=== PATIENT | male | born 1975 | race Caucasian/White ===

== ENCOUNTER 2017-01-15 00:56 | Emergency (ER) | payer OTHER ==
[~2017-01-15] VITALS: Ht 177.8 cm; Wt 110.0 kg
[2017-01-15 01:00] VITALS: Ht 177.8 cm; Wt 110.0 kg
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
[2017-01-15] MEDS ORDERED: ONDANSETRON (ODT) 4 MG TAB ODT STA (02:10)
[2017-01-15] MEDS ORDERED: IBUP-1542 PO (02:13)
[2017-01-15] MEDS ORDERED: HYDROCODONE/APAP (5/325) TAB PO ONE (02:30)
[2017-01-15 02:56] VITALS: BP 122/81; PULSE 102; RESP 16
[2017-01-16] MEDS ORDERED: HYDROCODONE/APAP (5/325) TAB ONE (01:46)
[2017-01-16] MEDS ORDERED: LACT10SO5 PO (11:27)
[2017-01-16] MEDS ORDERED: SENN-53 PO (11:27)
[2017-01-16] MEDS ORDERED: MULTI PO (11:28)
[2017-01-16] MEDS ORDERED: ASCO500S2 PO (11:28)
[2017-01-16] MEDS ORDERED: BACL20TA PO (11:29)
[2017-01-16] MEDS ORDERED: GABA400C14 PO (11:29)
[2017-01-16] MEDS ORDERED: DOCU-159 PO (11:29)
[2017-01-16] MEDS ORDERED: LANT3I SC (11:30)
[2017-01-16] MEDS ORDERED: HYDR-906 PO (11:32)
[2017-01-16] MEDS ORDERED: SILV20CR14 TOP (11:33)
[2017-01-16] MEDS ORDERED: ZINC220T PO (11:34)
[2017-01-16] MEDS ORDERED: SODI473S19 IRR (11:34)
[2017-01-16] MEDS ORDERED: UDMYL PO (11:35)
[2017-01-16] MEDS ORDERED: HYDR-902 PO (11:36)
[2017-01-16] MEDS ORDERED: POLY17PO6 PO (11:37)
[2017-01-16] MEDS ORDERED: GLUC1KIT IJ (11:37)
== END 2017-01-15 08:32 | disposition home or self-care (01) ==
LOC: E/R 00:56
DX: L89.95 Pressure ulcer of unspecified site, unstageable (principal); R40.2252 Coma scale, best verbal response, oriented, at arrival to emergency department; R40.2142 Coma scale, eyes open, spontaneous, at arrival to emergency department; R40.2362 Coma scale, best motor response, obeys commands, at arrival to emergency department
CPT/HCPCS: 99283

== ENCOUNTER 2017-01-16 08:09 | Inpatient (IN) | payer OTHER ==
[~2017-01-16] VITALS: Ht 165.1 cm; Wt 95.7 kg
[~2017-01-16 08:09] MED LIST: IBUP-1542 PO
[2017-01-16 09:16] LABS: BASOPHIL # 0.1 10^3/ul (0.0-0.1); BASOPHILS % 0.9 % (0.0-2.0); EOSINOPHILS # 0.2 10^3/ul (0.0-0.5); EOSINOPHILS % 2.7 % (0.0-7.0); HEMATOCRIT 32.7 % (42.0-52.0); HEMOGLOBIN 10.5 g/dl (14.0-18.0); LYMPHOCYTES # 0.7 10^3/ul (0.8-2.9); LYMPHOCYTES % 12.3 % (15.0-51.0); MEAN CORPUSCULAR HEMOGLOBIN 25.1 pg (29.0-33.0); MEAN CORPUSCULAR HGB CONC 32.1 g/dl (32.0-37.0); MEAN PLATELET VOLUME 11.5 fl (7.4-10.4); MONOCYTE # 0.3 10^3/ul (0.3-0.9); MONOCYTES % 4.5 % (0.0-11.0); NEUTROPHILS % 79.4 % (39.0-77.0); PLATELET COUNT 171 10^3/UL (140-415); RED BLOOD COUNT 4.19 10^6/ul (4.70-6.10); RED CELL DISTRIBUTION WIDTH 16.8 % (11.5-14.5); WHITE BLOOD COUNT 5.8 10^3/ul (4.8-10.8)
--- NOTE | 2017-01-16 09:26 | RADRPT ---
PROCEDURE: XR Chest. CLINICAL INDICATION: Possible sepsis TECHNIQUE: A single AP view of the chest was obtained. COMPARISON: None available FINDINGS: Lung volumes are low with compressive changes and crowding of the central pulmonary vascular marking s and left basilar interstitial opacities. There is a questionable small left pleural effusion. No pneumothorax is seen. The cardiomediastinal silhouette is upper limits of normal in size. The osseo us structures are unremarkable. IMPRESSION: 1. Small left pleural effusion with left basilar atelectasis versus pneumonia. 2. Low lung volumes with compressive changes. RPTAT: HH .Elida Harper MD, MD Date Time Electronically viewed and signed by .Elida Harper MD, MD on 01/16/2017 09:25 .G/
[2017-01-16 09:30] LABS: INR 1.04; PROTIME 13.6 Sec (12.2-14.2); PT RATIO 1.1
[2017-01-16 09:31] LABS: PARTIAL THROMBOPLASTIN TIME 27.5 Sec (25.0-35.0)
[2017-01-16 09:37] LABS: ALANINE AMINOTRANSFERASE 32 IU/L (13-69); ALBUMIN 3.8 g/dl (3.3-4.9); ALBUMIN/GLOBULIN RATIO 0.92; ALKALINE PHOSPHATASE 126 IU/L (42-121); ANION GAP 21 (8-16); ASPARTATE AMINO TRANSFERASE 18 IU/L (15-46); BLOOD UREA NITROGEN 5 mg/dl (7-20); CALCIUM 9.3 mg/dl (8.4-10.2); CARBON DIOXIDE 24 mmol/L (21-31); CHLORIDE 105 mmol/L (97-110); CREATININE 1.22 mg/dl (0.61-1.24); GLUCOSE 134 mg/dl (70-220); SODIUM 146 mmol/L (135-144); TOTAL PROTEIN 7.9 g/dl (6.1-8.1)
[2017-01-16 10:02] LABS: TROPONIN-I < 0.012 ng/ml (0.00-0.12)
[2017-01-16 11:08] LABS: ADD UMIC YES; UR ASCORBIC ACID NEGATIVE (NEGATIVE); UR BACTERIA MODERATE /HPF (NONE SEEN); UR BILIRUBIN (Dip) NEGATIVE (NEGATIVE); UR BLOOD (Dip) 1+ mg/dL (NEGATIVE); UR BUDDING YEAST MODERATE /HPF (NONE SEEN); UR CLARITY SLIGHTLY CLOUDY (CLEAR); UR COLOR YELLOW (YELLOW); UR GLUCOSE (Dip) NEGATIVE (NEGATIVE); UR KETONES (Dip) NEGATIVE (NEGATIVE); UR LEUKOCYTE ESTERASE (Dip) 2+ Leu/ul (NEGATIVE); UR NITRITE (Dip) NEGATIVE (NEGATIVE); UR RBC 7 /HPF (0-5); UR SPECIFIC GRAVITY (Dip) 1.009 (1.003-1.030); UR TOTAL PROTEIN (Dip) 1+ mg/dl (NEGATIVE); UR UROBILINOGEN (Dip) NEGATIVE (NEGATIVE)
[2017-01-16] MEDS ORDERED: LACT10SO5 PO (11:27)
[2017-01-16] MEDS ORDERED: SENN-53 PO (11:27)
[2017-01-16] MEDS ORDERED: ASCO500S2 PO (11:28)
[2017-01-16] MEDS ORDERED: MULTI PO (11:28)
[2017-01-16] MEDS ORDERED: GABA400C14 PO (11:29)
[2017-01-16] MEDS ORDERED: DOCU-159 PO (11:29)
[2017-01-16] MEDS ORDERED: BACL20TA PO (11:29)
[2017-01-16] MEDS ORDERED: VANCOMYCIN 1 GM (PMX) 250 ML IVPB SCH (11:30)
[2017-01-16] MEDS ORDERED: LANT3I SC (11:30)
[2017-01-16] MEDS ORDERED: CEFTRIAXONE 1 GM/50 ML (PMX) 50 ML IVPB ONE (11:30)
[2017-01-16] MEDS ORDERED: HYDR-906 PO (11:32)
[2017-01-16] MEDS ORDERED: SILV20CR14 TOP (11:33)
--- NOTE | 2017-01-16 11:33 | ERA ---
ER Documentation Chief Complaint Date/Time DATE: 01/16/17 TIME: 11:29 Chief Complaint Chest Pain HPI 41-year-old male referred to the emergency department from ambulance from his care facility for evaluation of chest pain. Patient is a poor historian providing limited insight. He states he had a nonspecific chest pain that started today. When the paramedics were called for his chest pain, he refused aspirin and other treatment but did want to get stent to the hospital. He has no further symptoms description of his chest pain in terms of radiation or inciting event. I have reviewed the director of real estate pre-hospital care. Pre-hospital vital signs were reviewed. Pre-hospital diagnostic tests were reviewed. Upon arrival, patient has no complaints of fevers, chills, vomiting or further discomfort. ROS All systems reviewed and are negative except as per history of present illness. Medications Home Meds Reported Medications Docusate Sodium* (Docusate Sodium*) 100 Mg Capsule, 100 MG PO BID, #60 CAP 01/16/17 Baclofen* (Baclofen*) 20 Mg Tablet, 20 MG PO Q6, TAB 01/16/17 Ascorbic Acid* (Ascorbic Acid*) 500 Mg/5 Ml Syrup, 500 MG PO BID, #300 ML 01/16/17 Multivitamins* (Theragran*) 1 Tab Tab, 1 TAB PO DAILY, TAB 01/16/17 Sennosides* (Senna Lax*) 8.6 Mg Tablet, 1 TAB PO DAILY, TAB 01/16/17 Lactulose* (Lactulose*) 10 Gm/15 Ml Solution, 10 GM PO DAILY Y for CONSTIPATION , ML 01/16/17 Discontinued Scripts Ibuprofen* (Motrin*) 600 Mg Tab, 600 MG PO Q6, #20 TAB Prov:JERRI MUNOZ MD 01/15/17 Allergies Allergies: Coded Allergies: No Known Allergy (Unverified , 01/16/17) PMhx/Soc Medical and Surgical Hx: pt denies Surgical Hx History of Surgery: Yes (COLOSTOMY ) Anesthesia Reaction: No Hx Neurological Disorder: No Hx Respiratory Disorders: No Hx Cardiac Disorders: No Hx Psychiatric Problems: No Hx Miscellaneous Medical Probl: Yes (DM) Hx Alcohol Use: Yes Hx Substance Use: No Hx Tobacco Use: No Smoking Status: Never smoker FmHx Noncontributory for chief complaint Physical Exam Vitals Vital Signs Date Time Temp Pulse Resp B/P Pulse Ox O2 Delivery O2 Flow Rate FiO2 01/16/17 09:46 118 18 175/118 100 Nasal Cannula 2.0 01/16/17 08:10 97.6 108 22 167/117 100 01/16/17 08:10 Nasal Cannula 2 Physical Exam General: frail, bed bound, ill appearing HEENT: Mucous membranes dry, sclera nonicteric Neck: No inflammatory changes noted. No JVD. Cardiovascular: Regular rate and rhythm, no murmurs rubs or gallops. Lungs: Transmission of upper airway sounds. Abdomen: Soft with G-tube appreciated. Nontender to palpation. Bowel sounds noted. : Diaper in place and incontinent. indwelling ramírez with cloudy urine noted Extremities: Atrophic but atraumatic with no edema, cyanosis or clubbing. Neurologic: Baseline neurologic dysfunction noted. Motor strength diminished in all 4 extremities consistent with neurologic dysfunction at baseline Skin: Skin breakdown noted per nursing note. Result Diagram: 01/16/17 0840 01/16/17 0840 Results 24 hrs Laboratory Tests Test 01/16/17 08:40 01/16/17 08:59 White Blood Count 5.810^3/ul Red Blood Count 4.1910^6/ul Hemoglobin 10.5g/dl Hematocrit 32.7% Mean Corpuscular Volume 78.0fl Mean Corpuscular Hemoglobin 25.1pg Mean Corpuscular Hemoglobin Concent 32.1g/dl Red Cell Distribution Width 16.8% Platelet Count 09533^3/UL Mean Platelet Volume 11.5fl Neutrophils % 79.4% Lymphocytes % 12.3% Monocytes % 4.5% Eosinophils % 2.7% Basophils % 0.9% Nucleated Red Blood Cells % 0.0/100WBC Neutrophils # (Manual) 4.610^3/ul Lymphocytes # 0.710^3/ul Monocytes # 0.310^3/ul Eosinophils # 0.210^3/ul Basophils # 0.110^3/ul Nucleated Red Blood Cells # 0.010^3/ul Prothrombin Time 13.6Sec Prothrombin Time Ratio 1.1 INR International Normalized Ratio 1.04 Activated Partial Thromboplast Time 27.5Sec Sodium Level 146mmol/L Potassium Level 4.0mmol/L Chloride Level 105mmol/L Carbon Dioxide Level 24mmol/L Anion Gap 21 Blood Urea Nitrogen 5mg/dl Creatinine 1.22mg/dl Glucose Level 134mg/dl Lactic Acid Level 1.6mmol/L Calcium Level 9.3mg/dl Total Bilirubin 0.0mg/dl Direct Bilirubin 0.00mg/dl Indirect Bilirubin 0.0mg/dl Aspartate Amino Transf (AST/SGOT) 18IU/L Alanine Aminotransferase (ALT/SGPT) 32IU/L Alkaline Phosphatase 126IU/L Troponin I < 0.012ng/ml Total Protein 7.9g/dl Albumin 3.8g/dl Globulin 4.10g/dl Albumin/Globulin Ratio 0.92 Urine Color YELLOW Urine Clarity SLIGHTLY CLOUDY Urine pH 6.0 Urine Specific [place] 1.009 Urine Ketones NEGATIVEmg/dL Urine Nitrite NEGATIVEmg/dL Urine Bilirubin NEGATIVEmg/dL Urine Urobilinogen NEGATIVEmg/dL Urine Leukocyte Esterase 2+Amparo/ul Urine Microscopic RBC 7/HPF Urine Microscopic WBC 31/HPF Urine Bacteria MODERATE/HPF Urine Yeast (Budding) MODERATE/HPF Urine Hemoglobin 1+mg/dL Urine Glucose NEGATIVEmg/dL Urine Total Protein 1+mg/dl Current Medications Medications (Trade) Dose Ordered Sig/Mita Route PRN Reason Start Time Stop Time Status Last Admin Dose Admin Ceftriaxone Sodium 50 ml @ 100 mls/hr ONCE ONCE IVPB 01/16/17 11:30 01/16/17 11:59 Vancomycin HCl (Vancocin) 250 ml @ 125 mls/hr ONCE IVPB 01/16/17 11:30 01/16/17 13:29 Procedures/MDM Patient was taken to a room, seen and evaluated. Comfort measures were initiated. Diagnostic tests were ordered and reviewed. 3 LEAD RHYTHM STRIP: Sinus tachycardia EK lead EKG reviewed by myself: Sinus tachycardia Normal [place] and intervals Nonspecific ST and T-wave changes without ST elevation Impression: Nondiagnostic EKG RADIOLOGY: reviewed with the radiologist CONSULTATION: hospitalist was notified for admission REEVALUATION: Patient remained hemo-dynamically stable MEDICAL DECISION MAKIN-year-old male with a history of paraplegia presents the emergency from a chest pain of uncertain etiology. From the standpoint of his chest pain, I have appreciated a nonspecific EKG and a negative troponin. Patient will be admitted for further observation. At this time, I have a low suspicion for clinically relevant pulmonary embolism and therefore have not ordered CT scans. Concurrently, patient has a catheter associated urinary tract infection but does not appear to be septic. Patient will be admitted for further evaluation. Departure Diagnosis: Primary Impression: Chest pain Additional Impression: Urinary catheter infection Condition: EMERSON Downey Jan 16, 2017 11:33
[2017-01-16] MEDS ORDERED: ZINC220T PO (11:34)
[2017-01-16] MEDS ORDERED: SODI473S19 IRR (11:34)
[2017-01-16] MEDS ORDERED: UDMYL PO (11:35)
[2017-01-16] MEDS ORDERED: HYDR-902 PO (11:36)
[2017-01-16] MEDS ORDERED: POLY17PO6 PO (11:37)
[2017-01-16] MEDS ORDERED: GLUC1KIT IJ (11:37)
[2017-01-16 13:42] VITALS: TEMP 97.4
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
[2017-01-16] MEDS ORDERED: IODIXANOL LOCM 100 ML BTL ONE (14:54)
[2017-01-16] MEDS ORDERED: SOD CHLORIDE 0.9% 100 ML ONE (14:54)
[2017-01-16] MEDS ORDERED: ONDANSETRON 4 MG INJ IV STA (15:33)
[2017-01-16] MEDS ORDERED: morphine 4 MG/ML VIAL IV STA (15:33)
[2017-01-16] MEDS: DOCUSATE SODIUM 100 MG CAP PO SCH (21:12)
[2017-01-16] MEDS: ASCORBIC ACID 500 MG TAB PO SCH (21:12)
[2017-01-16] MEDS: ENOXAPARIN 40 MG/0.4 ML SYG SC SCH (21:14)
[2017-01-16] MEDS ORDERED: AL HYDROX/MG HYDROX/SIMETH 30 ML CUP PO PRN (21:30)
[2017-01-16] MEDS ORDERED: HYDROCODONE/APAP (10/325) TAB PO PRN (21:30)
[2017-01-16] MEDS ORDERED: POLYETHYLENE GLYCOL 17 GM PACKET PO PRN (21:30)
[2017-01-16] MEDS ORDERED: LACTULOSE 30ML CUP PO PRN (21:30)
[2017-01-16] MEDS ORDERED: DEXTROSE 50% 50 ML SYRINGE IV PRN ×2 (22:00)
[2017-01-16] MEDS ORDERED: GLUCAGON 1 MG INJ IM PRN (22:00)
[2017-01-16] MEDS ORDERED: GLUCOSE GEL 15 GRAM TUBE BUCCAL PRN (22:00)
[2017-01-16] MEDS ORDERED: GLUCOSE GEL 15 GRAM TUBE PO PRN ×2 (22:00)
[2017-01-16] MEDS: hydrALAzine 20 MG INJ IV PRN (22:08)
[2017-01-16] MEDS ORDERED: LABETALOL HCL 20MG INJ IV ONE ×2 (23:00)
[2017-01-17] VITALS (14 sets, daily range): BP systolic 117–177; BP diastolic 86–99; PULSE 95–106; RESP 16–20; Ht 165.1 cm; Wt 95.7 kg
[2017-01-17] MEDS: LISINOPRIL 20 MG TAB PO SCH ×2 (01:12→09:14)
[2017-01-17] MEDS: BACLOFEN 10 MG TAB PO SCH ×4 (02:00→18:00)
[2017-01-17] MEDS: FLUCONAZOLE 200 MG/NS (PMX) 100 ML IVPB SCH ×2 (03:46→21:39)
[2017-01-17] MEDS ORDERED: GLUCOSE GEL 15 GRAM TUBE BUCCAL PRN (08:00)
[2017-01-17] MEDS ORDERED: DEXTROSE 50% 50 ML SYRINGE IV PRN ×2 (08:00)
[2017-01-17] MEDS: INSULIN ASPART [NOVOLOG] 3 ML PEN SC SCH ×4 (08:00→21:00)
[2017-01-17] MEDS ORDERED: GLUCOSE GEL 15 GRAM TUBE PO PRN ×2 (08:00)
[2017-01-17] MEDS ORDERED: GLUCAGON 1 MG INJ IM PRN (08:00)
[2017-01-17] MEDS: ASCORBIC ACID 500 MG TAB PO SCH ×2 (09:00→21:40)
[2017-01-17] MEDS: SILVER SULFADIAZINE 1% 400 GM CR TOP SCH ×3 (09:00→21:00)
[2017-01-17] MEDS: DOCUSATE SODIUM 100 MG CAP PO SCH ×2 (09:00→21:40)
[2017-01-17] MEDS: MULTIVITAMINS THERAPEUTIC TAB PO SCH (09:00)
[2017-01-17] MEDS: ZINC SULFATE 220 MG CAP PO SCH (09:00)
[2017-01-17] MEDS: SENNA TAB PO SCH (09:00)
[2017-01-17] MEDS ORDERED: INSULIN GLARGINE [LANtus] 3 ML PEN SC SCH (09:00)
[2017-01-17] MEDS: GABAPENTIN 400 MG CAP PO SCH ×3 (09:00→21:40)
[2017-01-17] MEDS: ENOXAPARIN 40 MG/0.4 ML SYG SC SCH (09:19)
--- NOTE | 2017-01-17 10:39 | RADRPT ---
Echocardiogram Report Patient Name: TRISHA PATE Gender: Male Date: 1975 Study Date: 17-Jan-2017 Chiropractic Assistant: Librado Berger [facility] Location: 5560 Ref. Physician: SRINATH HUSAIN Quality: Technically Difficult Study Procedures: Transthoracic echocardiogram with complete 2D, M-Mode, and doppler examination. Indications: Congestive Heart Failure. 2D/M Mode Doppler Measurement Value Normal Ranges Measurement Value Normal Ranges LVIDd 2D 4.1 3.5 - 5.6 cm AV Peak Pranay 1.3 m/sec LVIDs 2D 1.7 2.1 - 4.1 cm AV Peak PG 7.0 mmHg FS 2D 59.2 % LVOT Peak Pranay 1.0 m/sec LVPWd 2D 1.2 0.6 - 1.1 cm LVOT Peak PG 4.0 mmHg IVSd 2D 1.2 0.6 - 1.1 cm IVS/LVPW 2D 1.0 AoR Diam 2D 3.4 2.0 - 3.7 cm LA/Ao 2D 1 0 - 1 EDV 2D 71.0 cm3 ESV 2D 4.8 cm3 LA Dimen 2D 3.3 2.3 - 4.0 cm Findings Left Ventricle: Normal left ventricular systolic function. Normal left ventricular cavity size. Mild concentric left ventricular hypertrophy. Ejection fraction is visually estimated at 55 %. Tissue Doppler/Mitral Doppler indices are consistent with impaired relaxation (Stage I diastolic dysfunction). Right Ventricle: Normal right ventricular systolic function. Not well visualized. Left Atrium: The left atrium is normal in size. Right Atrium: The right atrium is normal in size. Mitral Valve: Normal appearance and function of the mitral valve with trace physiologic regurgitation. Aortic Valve: Normal appearance of the aortic valve. No significant aortic stenosis or insufficiency. Tricuspid Valve: Normal appearance of the tricuspid valve. Unable to obtain RVSP due to minimal presence of tricuspid regurgitation. Pulmonic Valve: Pulmonic valve not well visualized. Pericardium: Normal pericardium with no significant pericardial effusion. Aorta: Normal aortic root. IVC: Normal size and normal respiratory collapse consistent with normal right atrial pressure. Conclusions 1.Normal left ventricular systolic function. Normal left ventricular cavity size. Mild concentric left ventricular hypertrophy. Ejection fraction is visually estimated at 55 %. Tissue Doppler/Mitral Doppler indices are consistent with impaired relaxation (Stage I diastolic dysfunction). 2.Normal appearance and function of the mitral valve with trace physiologic regurgitation. 3.Normal appearance of the tricuspid valve. Unable to obtain RVSP due to minimal presence of tricuspid regurgitation. Electronically Signed By: Bruce Low 17-Jan-2017 10:38:08 -0700 Patient Name: TRISHA PATE Study Date: 17-Jan-2017 [id number]
[2017-01-17 10:41] LABS: BASOPHILS % 0.6 % (0.0-2.0); EOSINOPHILS # 0.2 10^3/ul (0.0-0.5); EOSINOPHILS % 2.3 % (0.0-7.0); HEMATOCRIT 35.2 % (42.0-52.0); HEMOGLOBIN 11.2 g/dl (14.0-18.0); LYMPHOCYTES # 0.9 10^3/ul (0.8-2.9); LYMPHOCYTES % 12.8 % (15.0-51.0); MEAN CORPUSCULAR HEMOGLOBIN 24.8 pg (29.0-33.0); MEAN CORPUSCULAR HGB CONC 31.8 g/dl (32.0-37.0); MEAN CORPUSCULAR VOLUME 77.9 fl (82.0-101.0); MEAN PLATELET VOLUME 11.4 fl (7.4-10.4); MONOCYTE # 0.3 10^3/ul (0.3-0.9); MONOCYTES % 4.3 % (0.0-11.0); NEUTROPHILS % 79.7 % (39.0-77.0); PLATELET COUNT 204 10^3/UL (140-415); RED BLOOD COUNT 4.52 10^6/ul (4.70-6.10); RED CELL DISTRIBUTION WIDTH 17.1 % (11.5-14.5)
[2017-01-17 11:05] LABS: IRON 41 ug/dl (35-150)
[2017-01-17 11:13] LABS: ALBUMIN 4.2 g/dl (3.3-4.9); ALBUMIN/GLOBULIN RATIO 0.87; BILIRUBIN,INDIRECT 0.4 mg/dl (0-1.1); BILIRUBIN,TOTAL 0.4 mg/dl (0.2-1.3); CREATININE 1.1 mg/dl (0.61-1.24); POTASSIUM 3.6 mmol/L (3.5-5.1)
[2017-01-17 11:15] LABS: TOTAL IRON BINDING CAPACITY 308 ug/dl (241-421)
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
[2017-01-18] VITALS (13 sets, daily range): BP systolic 126–179; BP diastolic 78–105; PULSE 78–103; RESP 17–20
[2017-01-18] MEDS: hydrALAzine 20 MG INJ IV PRN (00:31)
[2017-01-18] MEDS ORDERED: ACCU-CHEK XX SCH ×2 (02:00)
[2017-01-18] MEDS: BACLOFEN 10 MG TAB PO SCH ×4 (05:46→17:38)
[2017-01-18] MEDS: INSULIN ASPART [NOVOLOG] 3 ML PEN SC SCH ×3 (08:00→17:38)
[2017-01-18] MEDS ORDERED: INSULIN GLARGINE [LANtus] 3 ML PEN SC SCH (09:00)
[2017-01-18] MEDS: ZINC SULFATE 220 MG CAP PO SCH (09:27)
[2017-01-18] MEDS: ASCORBIC ACID 500 MG TAB PO SCH (09:29)
[2017-01-18] MEDS: LISINOPRIL 20 MG TAB PO SCH (09:29)
[2017-01-18] MEDS: MULTIVITAMINS THERAPEUTIC TAB PO SCH (09:29)
[2017-01-18] MEDS: DOCUSATE SODIUM 100 MG CAP PO SCH (09:29)
[2017-01-18] MEDS: GABAPENTIN 400 MG CAP PO SCH ×2 (09:29→12:54)
[2017-01-18] MEDS: SENNA TAB PO SCH (09:29)
[2017-01-18] MEDS: SILVER SULFADIAZINE 1% 25 GM CR TOP SCH ×2 (09:30→12:54)
[2017-01-18] MEDS: ENOXAPARIN 40 MG/0.4 ML SYG SC SCH (09:33)
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
--- NOTE | 2017-01-18 17:59 | PDOCDIS ---
Discharge Instructions DIAGNOSIS Discharge Diagnosis Atypical chest pain. Refused CT scan. CONDITION Patient Condition: Stable HOME CARE INSTRUCTIONS: Diet Instructions: LOW FAT, LOW CHOLESTEROL DIETSpecial Diet: LOW FAT/ LOW CHOLESTEROLYour diet recommendation is: LOW FAT, LOW CHOLESTEROL DIET ACTIVITY: Activity Restrictions: Slowly Increase Activity Rest between Activity Do not Drive Bathing Restrictions: TOLERATED FOLLOW UP/APPOINTMENTS Follow-up Plan PCP 1wKALPESH Kuhn MD Jan 18, 2017 17:59
== END 2017-01-18 19:48 | disposition home or self-care (01) | DRG 313 ==
LOC: E/R 08:09 → MS4 11:39
PROVIDERS: ADMIT Internal Medicine; ATTEND Internal Medicine
DX: R07.89 Other chest pain (principal); G82.20 Paraplegia, unspecified; F10.10 Alcohol abuse, uncomplicated; Z93.3 Colostomy status; Z59.0 Homelessness
CPT/HCPCS: 36415; 71010; 80053; 81001; 82728; 82962; 83540; 83605; 83880; 84484; 85025; 85610; 85730; 87040; 87081; 87086; 93005; 93306; 96372; 96374; 96375; J0360; J0696; J1650; J1815; J2270; J2405; J3370; Q9967

== ENCOUNTER 2017-01-25 03:09 | Emergency (ER) | payer OTHER ==
[~2017-01-25] VITALS: Ht 165.1 cm; Wt 100.0 kg
[~2017-01-25 03:09] MED LIST changes: +ASCO500S2 PO; +BACL20TA PO; +DOCU-159 PO; +GABA400C14 PO; +GLUC1KIT IJ; +HYDR-902 PO; +HYDR-906 PO; -IBUP-1542 PO; +LACT10SO5 PO; +LANT3I SC; +MULTI PO; +POLY17PO6 PO; +SENN-53 PO; +SILV20CR14 TOP; +SODI473S19 IRR; +UDMYL PO; +ZINC220T PO
[2017-01-25 03:24] VITALS: Ht 165.1 cm; Wt 100.0 kg
--- NOTE | 2017-01-25 05:41 | ERD ---
ER Documentation Chief Complaint Date/Time DATE: 01/25/17 TIME: 05:39 Chief Complaint intoxicated in front of a liquor store HPI This is a 41-year-old male who was intoxicated referred from the [facility]. He was sleeping on the bench. No sick evidence of trauma. No nausea no vomiting no fevers no chills ROS All systems reviewed and are negative except as per history of present illness. Medications Home Meds Reported Medications Glucagon,Human Recombinant (Glucagon Emergency Kit) 1 Mg Kit, 1 MG IJ PRN, KIT 01/16/17 Polyethylene Glycol* (Miralax*) 17 Gm Powd.pack, 17 GM PO DAILY Y for CONSTIPATION, #30 PACKET 01/16/17 Hydrocodone/Acetaminophen (Clifton 10-325 Tablet) 1 Each Tablet, 1 EACH PO Q6 Y for PAIN 7-10, TAB 01/16/17 Magaldrate/Simethicone* (Mag-Al Plus Suspension*) 30 Ml Oral.susp, 30 ML PO Q6H Y for GASTROINTESTINAL UPSET, ML 01/16/17 Zinc Sulfate* (Zinc Sulfate*) 220 Mg Tablet, 220 MG PO DAILY, TAB 01/16/17 Sodium Hypochlorite (Dakin's (1/4 Strength)) 473 Ml Irrig.soln, 473 ML IRR Q8, BOTTLE 01/16/17 Silver Sulfadiazine* (Silvadene*) 1% - 20 Gm Cream.gm., 1 APPLIC TOP TID, #1 TUB 01/16/17 Hydrocodone/Acetaminophen (Clifton 5-325 Tablet) 1 Each Tablet, 1 EACH PO Q6 Y for PAIN 4-6, TAB 01/16/17 Insulin Glargine* (Lantus*) 100 Unit/Ml Soln, 24 UNIT SC BID, #1 VIAL 01/16/17 Gabapentin* (Gabapentin*) 400 Mg Capsule, 1200 MG PO TID, #270 CAP 01/16/17 Docusate Sodium* (Docusate Sodium*) 100 Mg Capsule, 100 MG PO BID, #60 CAP 01/16/17 Baclofen* (Baclofen*) 20 Mg Tablet, 20 MG PO Q6, TAB 01/16/17 Ascorbic Acid* (Ascorbic Acid*) 500 Mg/5 Ml Syrup, 500 MG PO BID, #300 ML 01/16/17 Multivitamins* (Theragran*) 1 Tab Tab, 1 TAB PO DAILY, TAB 01/16/17 Sennosides* (Senna Lax*) 8.6 Mg Tablet, 1 TAB PO DAILY, TAB 01/16/17 Lactulose* (Lactulose*) 10 Gm/15 Ml Solution, 10 GM PO DAILY Y for CONSTIPATION , ML 01/16/17 Allergies Allergies: Coded Allergies: No Known Allergy (Unverified , 01/16/17) PMhx/Soc History of Surgery: No Hx Neurological Disorder: Yes (paraplegic) Hx Respiratory Disorders: No Hx Cardiac Disorders: No Hx Miscellaneous Medical Probl: Yes (paraplegic with colostomy bag) Hx Alcohol Use: Yes (intoxicated upon arrival) Hx Tobacco Use: No Smoking Status: Unknown if ever smoked Physical Exam Vitals Vital Signs Date Time Temp Pulse Resp B/P Pulse Ox O2 Delivery O2 Flow Rate FiO2 01/25/17 03:24 97.7 98 15 123/76 97 Physical Exam Const: [] Head: Atraumatic Eyes: Normal Conjunctiva ENT: Normal External Ears, Nose and Mouth. Neck: Full range of motion..~ No meningismus. Resp: Clear to auscultation bilaterally Cardio: Regular rate and rhythm, no murmurs Abd: Soft, non tender, non distended. Normal bowel sounds Skin: No petechiae or rashes Back: No midline or flank tenderness Ext: No cyanosis, or edema Neur: Awake and alert Psych: Normal Mood and Affect Procedures/MDM Medical decision making: This is a 41-year-old male has acute alcohol intoxication. No evidence of trauma. Well-appearing. ANO 4 with goal oriented speech and good decision-making capacity when he got negotiate the community. Advised to stop drinking. Departure Diagnosis: Primary Impression: Alcoholic intoxication Complication of substance-induced condition: uncomplicated Qualified Code: F10.920 - Alcoholic intoxication without complication Condition: Stable Patient Instructions: Alcohol Intoxication KONSTANTIN TAPIA Jan 25, 2017 05:41
[2017-01-25 09:35] VITALS: BP 127/69; PULSE 92; RESP 16
--- NOTE | 2017-01-25 10:39 | QN ---
Documentation Comment Observation Note: Time: 4 hours Family Hx: Negative for diabetes Evaluation: Multiple exams showed improving symptoms and no evidence of clinical decompensation. SONAL CONCEPCION MD Jan 25, 2017 10:39
[2017-01-25] MEDS ORDERED: IBUPROFEN 800 MG TAB ONE (11:11)
[2017-01-25] MEDS ORDERED: IBUPROFEN 800 MG TAB PO ONE (11:30)
== END 2017-01-25 11:48 | disposition home or self-care (01) ==
LOC: E/R 03:09
DX: F10.920 Alcohol use, unspecified with intoxication, uncomplicated (principal); E11.9 Type 2 diabetes mellitus without complications; Z79.4 Long term (current) use of insulin
CPT/HCPCS: Z7502; Z7610; 99283